=== PATIENT | male | born 1960 | race Caucasian/White ===

== ENCOUNTER → 2017-01-29 | Outpatient (CLI) | payer OTHER ==
[~2017-01-29] MED LIST: WARF4TAB33 PO
--- NOTE | 2017-01-30 08:14 | DI ---
Indication: ITS.REASON: M25.512 LEFT SHOULDER PAIN PROCEDURE: MRI SHOULDER LEFT W/O CONTRAST: Encounter: Initial Comparison: None Technique: Multiplanar multisequence MR imaging of the left shoulder was performed without contrast. Findings: The long head biceps tendon is intact and located within the bicipital groove. Subscapularis tendon has some slight increased T2 signal intensity distally without discrete tear. Increased T2 signal intensity within the distal supraspinatus tendon with evidence of a small rim rent tear. No complete or full-thickness tear. The infraspinatus and teres minor tendons are intact. No acute fracture. Acromioclavicular joint is normal. Mild degenerative change in the glenohumeral joint with osteophyte formation and cartilage loss on the glenoid. Trace subacromial subdeltoid bursal fluid. Degenerative superior and posterior labral tearing. Muscular bulk and signal intensity is within normal limits. Impression: 1. Rim rent tear of the supraspinatus tendon with tendinopathy. 2. Degenerative labral tearing. 3. Subscapularis tendinopathy. .
== END ==
LOC: IMA 16:28
PROVIDERS: ATTEND Physician Assistant
DX: M75.112 Incomplete rotator cuff tear or rupture of left shoulder, not specified as traumatic (principal); M24.112 Other articular cartilage disorders, left shoulder; M25.512 Pain in left shoulder